=== PATIENT | female | born 1950 | race African-American/Black ===

== ENCOUNTER 2020-02-24 11:48 | Emergency (ER) | payer MEDICARE, MEDICAID ==
[~2020-02-24] VITALS: Ht 170.2 cm; Wt 102.0 kg
[2020-02-24] MEDS ORDERED: IBUPROFEN 600MG TABLET PO ONE (12:30)
[2020-02-24] MEDS ORDERED: ACETAMINOPHEN WITH CODEINE 300/30MG TABLET PO ONE (12:30)
[2020-02-24 15:35] VITALS: BP 152/74
== END 2020-02-24 15:36 | disposition home or self-care (01) ==
LOC: ER 12:15
DX: S82.401A Unspecified fracture of shaft of right fibula, initial encounter for closed fracture (principal); S82.891A Other fracture of right lower leg, initial encounter for closed fracture; I10 Essential (primary) hypertension; W18.30XA Fall on same level, unspecified, initial encounter; Y93.89 Activity, other specified; Y92.89 Other specified places as the place of occurrence of the external cause; Y99.8 Other external cause status
CPT/HCPCS: 29505; 73590; 73610; 73630; 99284